=== PATIENT | male | born 2000 | race Caucasian/White ===

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

== ENCOUNTER 2019-01-31 13:41 | Emergency (ER) | payer OTHER ==
[2019-01-31 14:28] VITALS: BP 152/76
--- NOTE | 2019-01-31 15:51 | UC ---
Lower Extremity/Ankle HPI - HPI Summary HPI Summary: 19-year-old male presents with 2 week history of right foot pain. States 2 weeks ago he was playing soccer and he accidentally kicked the foot of a defender while trying to shoot the ball causing a hyperextension injury to his right foot. States he has had constant aching pain to the medial aspect of his right foot. Denies aggravating or alleviating factors. States he was evaluated at the hospital [facility] last week and told he had a contusion of the foot. No radiological images were done at that time. He was able to walk and bear weight immediately after the injury as well as here in the clinic. Denies numbness or tingling. - History of Current Complaint Chief Complaint: UCLowerExtremity Stated Complaint: RIGHT FOOT INJURY Time Seen by Provider: 01/31/19 15:27 Hx Obtained From: Patient Pain Intensity: 6 - Allergies/Home Medications Allergies/Adverse Reactions: Allergies Allergy/AdvReac Type Severity Reaction Status Date / Time No Known Allergies Allergy Verified 01/31/19 14:26 PMH/Surg Hx/FS Hx/Imm Hx Previously Healthy: Yes - Denies significant PMH - Surgical History Surgical History: None - Family History Known Family History: Positive: Non-Contributory - Social History Occupation: Student Lives: Dormitory/Roommates Alcohol Use: Occasionally Substance Use Type: None Smoking Status (MU): Never Smoked Tobacco - Immunization History Most Recent Influenza Vaccination: no 2016 Review of Systems All Other Systems Reviewed And Are Negative: Yes Constitutional: Positive: Negative Skin: Negative: Bruising Respiratory: Positive: Negative Cardiovascular: Positive: Negative Gastrointestinal: Positive: Negative Genitourinary: Positive: Negative Motor: Negative: Weakness Neurovascular: Negative: Decreased Sensation Musculoskeletal: Positive: Other: - See HPI Neurological: Positive: Negative Is Patient Immunocompromised?: No Physical Exam - Summary Physical Exam Summary: GENERAL APPEARANCE: Well developed, well nourished, alert and cooperative, and appears to be in no acute distress. CARDIAC: Normal S1 and S2. No S3, S4 or murmurs. Rhythm is regular. There is no peripheral edema, cyanosis or pallor. Extremities are warm and well perfused. Capillary refill is less than 2 seconds. Peripheral pulses intact. LUNGS: Clear to auscultation without rales, rhonchi, wheezing or diminished breath sounds. ABDOMEN: Positive bowel sounds. Soft, nondistended, nontender. No guarding or rebound. No masses or hepatosplenomegally. MUSKULOSKELETAL: Normal muscular development. EXTREMITIES: Mild tenderness over the proximal 1st metatarsal of the right foot without erythema, ecchymosis, edema, or gross deformity. Circulation and sensation intact. Normal gait. SKIN: Skin normal color, texture and turgor with no lesions or eruptions. Triage Information Reviewed: Yes Vital Signs: Initial Vital Signs Temp 98.1 F 01/31/19 14:24 Pulse 71 01/31/19 14:24 Resp 14 01/31/19 14:24 BP 152/76 01/31/19 14:24 Pulse Ox 98 01/31/19 14:24 Vital Signs Reviewed: Yes Diagnostics - Radiology No standard instances Radiology Interpretation Completed By: Radiologist Summary of Radiographic Findings: Patient Name: KELLIE LEA Medical Record# : [id number]. Ordering Physician: Lv Mitchell NP Acct.#: [id number]. : 2000 Age: 19 Sex: M Location: [facility]. Exam Date: 1531 ADM Status: REG ER. Order Information: FOOT RIGHT 3+ VWS. Accession Number: [id number]. CPT: 96887. INDICATION: Right foot injury. TECHNIQUE: 3 views of the right foot were obtained. FINDINGS: The bones are in normal alignment. No fracture is seen. Joint spaces appear maintained. IMPRESSION: NO EVIDENCE FOR FRACTURE. Lower Extremity Course/Dx - Course Course Of Treatment: 19-year-old male presents with 2 week history of right foot pain. States 2 weeks ago he was playing soccer and he accidentally kicked the foot of a defender while trying to shoot the ball causing a hyperextension injury to his right foot. States he has had constant aching pain to the medial aspect of his right foot. Denies aggravating or alleviating factors. States he was evaluated at the hospital [facility] last week and told he had a contusion of the foot. No radiological images were done at that time. He was able to walk and bear weight immediately after the injury as well as here in the clinic. Denies numbness or tingling. Afebrile. Vital signs stable. Exam reveals a young adult male in no acute distress with mild tenderness over the proximal first metatarsal of the right foot without erythema, ecchymosis, edema, or gross deformity. Circulation and sensation are intact. Exam was otherwise unremarkable. X-ray of the foot showed no acute fracture. Will treat him for a a right foot sprain. He was placed in a postop shoe and provided with a prescription for naproxen 500 mg twice a day for the next 5-7 days then as needed. Referral was provided to orthopedic surgery if his symptoms did not improve in one week. Anticipatory guidance and warning symptoms were reviewed with the patient. Verbalizes understanding and agrees with plan of care. - Differential Dx/Diagnosis Differential Diagnosis/HQI/PQRI: Contusion, Fracture (Closed), Sprain Provider Diagnosis: Right foot sprain Discharge - Sign-Out/Discharge Documenting (check all that apply): Patient Departure All imaging exams completed and their final reports reviewed: Yes - Discharge Plan Condition: Stable Disposition: HOME Prescriptions: Naproxen [Naproxen 500 mg tab] 500 mg PO Q12HR #30 tablet Patient Education Materials: Foot Sprain (ED) Forms: *School Release Referrals: No Primary Care Phys,NOPCP [Primary Care Provider] - Wei Love MD [Medical Doctor] - Additional Instructions: The x-ray performed in the clinic today showed no evidence of a fracture. I suspect that you have a sprain of the foot. Take naproxen 1 tab every 12 hours with food for the next 5-7 days then may take every 12 hours as needed. Use the post-op shoe provided to you for comfort and support until you are pain free. You may remove to shower and sleep but use at all other times. Rest the foot as much as possible. You may continue to walk and bear weight as tolerated. Follow up with orthopedic surgery in 1 week if symptoms do not improve. Seek immediate medical attention in the emergency room if you develop severe pain not managed with pain medication, you are unable to walk or bear weight on the foot, you develop numbness or tingling in the foot or toes, or any worsening of symptoms. - Billing Disposition and Condition Condition: STABLE Disposition: Home
== END 2019-01-31 16:55 | disposition home or self-care (01) ==
LOC: UCCORT 13:41
DX: S93.601A Unspecified sprain of right foot, initial encounter (principal); W51.XXXA Accidental striking against or bumped into by another person, initial encounter; X50.0XXA Overexertion from strenuous movement or load, initial encounter; Y93.66 Activity, soccer; Y92.9 Unspecified place or not applicable
CPT/HCPCS: 99213; G0463

== ENCOUNTER 2019-02-19 15:12 | Emergency (ER) | payer OTHER ==
[2019-02-19 15:44] VITALS: BP 129/57
--- NOTE | 2019-02-19 16:07 | UC ---
UC General HPI - HPI Summary HPI Summary: PT C/O NAUSEA WITH SOME VOMITING SINCE THE EARLY AM. BOTH HAVE SINCE STOPPED. NO ABDOMINAL PAIN, FEVER OR DIARRHEA. HE HAS BEEN TAKING FLUIDS AND NOW FEELS HUNGRY AND WANTS TO EAT. NO TRAVEL HX, IBD, RECENT ANTIBIOTIC USE. DRINKING WATER AND GATORADE. - History of Current Complaint Chief Complaint: UCGI Stated Complaint: STOMACH ACHE,VOMITING,RAHMAN Time Seen by Provider: 02/19/19 16:00 Hx Obtained From: Patient Pain Intensity: 0 Associated Signs & Symptoms: Negative: Abdominal Pain, Edema - Allergy/Home Medications Allergies/Adverse Reactions: Allergies Allergy/AdvReac Type Severity Reaction Status Date / Time No Known Allergies Allergy Verified 02/19/19 15:36 Home Medications: Home Medications NK [No Home Medications Reported] 02/19/19 [History Confirmed 02/19/19] PMH/Surg Hx/FS Hx/Imm Hx Previously Healthy: Yes - Surgical History Surgical History: None - Family History Known Family History: Positive: Non-Contributory - Social History Occupation: Student Alcohol Use: Occasionally Substance Use Type: None Smoking Status (MU): Never Smoked Tobacco - Immunization History Most Recent Influenza Vaccination: no 2016 Review of Systems All Other Systems Reviewed And Are Negative: Yes Gastrointestinal: Positive: Vomiting, Nausea Physical Exam Triage Information Reviewed: Yes Appearance: Well-Appearing Vital Signs: Initial Vital Signs Temp 98.2 F 02/19/19 15:37 Pulse 55 02/19/19 15:37 Resp 16 02/19/19 15:37 BP 129/57 02/19/19 15:37 Pulse Ox 100 02/19/19 15:37 Vital Signs Reviewed: Yes Eyes: Positive: Conjunctiva Clear ENT: Positive: Pharynx normal, TMs normal. Negative: Nasal congestion, Nasal drainage Neck: Positive: Supple, Nontender, No Lymphadenopathy Respiratory: Positive: Lungs clear, Normal breath sounds, No respiratory distress Cardiovascular: Positive: RRR, No Murmur Abdomen Description: Positive: Nontender, No Organomegaly, Soft. Negative: Distended, Guarding, Peritoneal Signs Bowel Sounds: Positive: Present Musculoskeletal: Positive: ROM Intact Neurological: Positive: Alert Psychological: Positive: Age Appropriate Behavior Skin Exam: Normal Course/Dx - Course Course Of Treatment: PT DECLINED ANTI NAUSEA MEDICATIONS HERE AND FOR HOME. - Differential Dx - Multi-Symptom Differential Diagnoses: Other - NON TOXIC. NO ACUTE ABDOMEN. NO CURRENT S/S'S - Diagnoses Provider Diagnosis: Nausea & vomiting Discharge - Sign-Out/Discharge Documenting (check all that apply): Patient Departure All imaging exams completed and their final reports reviewed: No Studies - Discharge Plan Condition: Stable Disposition: HOME Patient Education Materials: Acute Nausea and Vomiting (ED) Forms: *School Release Referrals: [facility] [, APPLICATION, OTHER] - If Needed - Billing Disposition and Condition Condition: STABLE Disposition: Home
== END 2019-02-19 16:14 | disposition home or self-care (01) ==
LOC: UCCORT 15:12
DX: R11.12 Projectile vomiting (principal)
CPT/HCPCS: 99211; G0463

== ENCOUNTER 2019-09-23 10:46 | Emergency (ER) | payer OTHER ==
[2019-09-23 11:18] VITALS: BP 127/65
--- NOTE | 2019-09-23 11:33 | UC ---
Abdominal Pain Male HPI - HPI Summary HPI Summary: 19 year old male with no PMH, presents after having abdominal pain, nausea, 3 episodes of watery diarrhea starting last night. Tactile fever, chills, no improved. no prior occurences, friend was recently sick, no new foods or eating out. - History of Current Complaint Chief Complaint: UCGeneralIllness Stated Complaint: FEVER,NAUSEA,STOMACH ACHE,DIARRHEA Time Seen by Provider: 09/23/19 11:32 Hx Obtained From: Patient Onset/Duration: Sudden Onset, Lasting Hours Severity Initially: Severe Severity Currently: Mild Pain Intensity: 0 Pain Scale Used: 0-10 Numeric Location: Discrete At: RLQ, Discrete At: LLQ, Epigastric Character: Cramping Associated Signs And Symptoms: Positive: Fever, Urinary Symptoms - Allergies/Home Medications Allergies/Adverse Reactions: Allergies Allergy/AdvReac Type Severity Reaction Status Date / Time No Known Allergies Allergy Verified 09/23/19 11:18 PMH/Surg Hx/FS Hx/Imm Hx Previously Healthy: Yes - Surgical History Surgical History: None - Family History Known Family History: Positive: Non-Contributory - Social History Occupation: Student - at [employer] Alcohol Use: Occasionally Substance Use Type: None Smoking Status (MU): Never Smoked Tobacco - Immunization History Most Recent Influenza Vaccination: no 2016 Review of Systems All Other Systems Reviewed And Are Negative: Yes Constitutional: Positive: Fever, Chills, Fatigue Gastrointestinal: Positive: Abdominal Pain, Diarrhea, Nausea Genitourinary: Negative: Vaginal/Penile Burning, Vaginal/Penile Itching, Vaginal /Penile Discharge, Vaginal/Penile Pain, Vaginal/Penile Tenderness Motor: Positive: Negative Psychological: Positive: Negative Is Patient Immunocompromised?: No Physical Exam Triage Information Reviewed: Yes Appearance: Well-Appearing, No Pain Distress, Well-Nourished Vital Signs: Initial Vital Signs Temp 98.6 F 09/23/19 11:13 Pulse 58 09/23/19 11:13 Resp 16 09/23/19 11:13 BP 127/65 09/23/19 11:13 Pulse Ox 99 09/23/19 11:13 Vital Signs Reviewed: Yes Eyes: Positive: Conjunctiva Clear Abdomen Description: Positive: No Organomegaly, Soft, Other: - epigastric pain with palpation, neg psoas/ obturator. Negative: CVA Tenderness (R), CVA Tenderness (L), Distended, Guarding, Hernia @, Hepatomegaly, Splenomegaly Musculoskeletal Exam: Normal Neurological Exam: Normal Psychological Exam: Normal Skin Exam: Normal Abd Pain Male Course/Dx - Course Course Of Treatment: GI illness, likely viral - Increase fluid intake - Zofran every 8 hours as needed for nausea - Monitor stools- if no improvement within 2-3 days, return with stool culture - Return with increased fever, lightheadedness, unable to hold down water/ liquids. - Diet- simple diet- saltine crackers, chicken noodle soup, applesauce, plain rice, simple carbs. Avoid raw fruits/ vegetables/ whole wheat until stools become more formed - Differential Dx/Clinical Impression Differential Diagnosis/HQI/PQRI: Urinary Tract Infection Provider Diagnosis: Gastroenteritis and colitis, viral Discharge ED - Sign-Out/Discharge Documenting (check all that apply): Patient Departure All imaging exams completed and their final reports reviewed: No Studies - Discharge Plan Condition: Good Disposition: HOME Prescriptions: Ondansetron ODT TAB* [Zofran 4 MG Odt TAB*] 4 mg PO Q8H PRN #7 tab.odt PRN Reason: Nausea Patient Education Materials: Gastroenteritis (ED), Low Fiber Diet (ED) Forms: *School Release Referrals: No Primary Care Phys,NOPCP [Primary Care Provider] - Additional Instructions: - Increase fluid intake - Zofran every 8 hours as needed for nausea - Monitor stools- if no improvement within 2-3 days, return with stool culture - Return with increased fever, lightheadedness, unable to hold down water/ liquids. - Diet- simple diet- saltine crackers, chicken noodle soup, applesauce, plain rice, simple carbs. Avoid raw fruits/ vegetables/ whole wheat until stools become more formed - Billing Disposition and Condition Condition: GOOD Disposition: Home
== END 2019-09-23 11:58 | disposition home or self-care (01) ==
LOC: UCCORT 10:46
DX: A08.4 Viral intestinal infection, unspecified (principal)
CPT/HCPCS: 99212; G0463